=== PATIENT | male | born 1995 | race African-American/Black ===

== ENCOUNTER 2017-02-28 02:10 | Emergency (ER) | payer SELFPAY ==
[2017-02-28 02:30] VITALS: BP 126/68; PULSE 75; RESP 18; TEMP 98.5; O2SAT 100
[2017-02-28] MEDS ORDERED: SODIUM CHLOR 0.9% 1000 ML INJ 1,000 ML IV SCH (04:09)
[2017-02-28] MEDS ORDERED: SODIUM CHLORIDE 0.9% FLUSH 10 ML FLUSH IV FLUSH PRN (04:15)
[2017-02-28 04:19] VITALS: BP 114/66; PULSE 74; RESP 18; TEMP 98.3; O2SAT 99
[2017-02-28 04:35] LABS: AUTOMATED NEUTROPHIL # 3.5 TH/MM3 (1.8-7.7); BASOPHIL % 0.5 % (0.0-2.0); EOSINOPHIL % 7.6 % (0.0-4.0); HEMO FLAGS DIFF FINAL; LYMPH % 25.9 % (9.0-44.0); LYMPHOCYTE # 1.7 TH/MM3 (1.0-4.8); MEAN CELL VOLUME 88.5 FL (80.0-100.0); MEAN CORPUSCULAR HEMOGLOBIN 29.1 PG (27.0-34.0); MEAN CORPUSCULAR HGB CONC 32.9 % (32.0-36.0); MONO % 13.8 % (0.0-8.0); NEUT % 52.2 % (16.0-70.0); PLATELET COUNT 255 TH/MM3 (150-450); WHITE BLOOD COUNT 6.6 TH/MM3 (4.0-11.0)
[2017-02-28 04:36] LABS: EOSINOPHIL # 0.5 TH/MM3 (0-0.4)
[2017-02-28] MEDS ORDERED: AZITHROMYCIN PWD FOR SUSP 1 GM PACKET PO ONE (04:45)
[2017-02-28] MEDS ORDERED: cefTRIAXone INJ 1,000 MG in SODIUM CHLORIDE 0.9% INJ 100 ML IV ONE (04:45)
[2017-02-28 04:46] LABS: PROTHROMBIN TIME - PATIENT 10.7 SEC (9.8-11.6)
[2017-02-28 04:55] LABS: ALT (GPT) 20 U/L (12-78); ANION GAP 6 MEQ/L (5-15); AST (GOT) 14 U/L (15-37); BICARBONATE 31.5 MEQ/L (21.0-32.0); BLOOD UREA NITROGEN 11 MG/DL (7-18); CHLORIDE 103 MEQ/L (98-107); GLOMERULAR FILTRATION RATE 138 ML/MIN (>89); POTASSIUM 3.9 MEQ/L (3.5-5.1); SODIUM (NA) 140 MEQ/L (136-145)
[2017-02-28 04:57] LABS: ALKALINE PHOSPHATASE 87 U/L (45-117); TOTAL BILIRUBIN ADULT 0.2 MG/DL (0.2-1.0)
--- NOTE | 2017-02-28 05:00 | PD ---
HPI Chief Complaint: Abdominal Pain Time Seen by Provider: 04:10 Travel History International Travel<30 days: No Contact w/Intl Traveler<30days: No Traveled to known affect area: No History of Present Illness HPI Patient presents to emergency room for evaluation of penile discharge for the past 2-3 days. Patient reports history of gonorrhea in the past, patient concerned for possible STD this time. Patient with no abdominal pain, nausea vomiting or diarrhea at this time. Patient with no fevers or chills, no other complaints PFSH Past Medical History Medical History: Denies Significant Hx Diminished Hearing: No Immunizations Current: Yes Tetanus Vaccination: < 5 Years Influenza Vaccination: Yes Past Surgical History Surgical History: No Previous Surgery Social History Alcohol Use: Yes (OCCASIONAL) Tobacco Use: Yes (1/2 PACK PER WEEK) Substance Use: No Allergies-Medications (Allergen,Severity, Reaction): Coded Allergies: No Known Allergies (Verified Allergy, Unknown, 02/28/17) Reported Meds & Prescriptions Reported Meds & Active Scripts Active Macrobid (Nitrofurantoin Monoh/Nitrofur Macro) 100 Mg Cap 100 Mg PO BID 10 Days Review of Systems General / Constitutional: No: Fever Eyes: No: Visual changes HENT: No: Headaches Cardiovascular: No: Chest Pain or Discomfort Respiratory: No: Shortness of Breath Gastrointestinal: No: Abdominal Pain Genitourinary: Positive: Other (penile discharge), No: Dysuria Musculoskeletal: No: Pain Skin: No Rash Neurologic: No: Weakness Psychiatric: No: Depression Endocrine: No: Polydipsia Hematologic/Lymphatic: No: Easy Bruising Physical Exam Narrative GENERAL: NAD, NONTOXIC SKIN: Focused skin assessment warm/dry. HEAD: Atraumatic. Normocephalic. EYES: Pupils equal and round. No scleral icterus. No injection or drainage. ENT: No nasal bleeding or discharge. Mucous membranes pink and moist. NECK: Trachea midline. No JVD. CARDIOVASCULAR: Regular rate and rhythm. No murmur appreciated. RESPIRATORY: No accessory muscle use. Clear to auscultation. Breath sounds equal bilaterally. GASTROINTESTINAL: Abdomen soft, non-tender, nondistended. Hepatic and splenic margins not palpable. MUSCULOSKELETAL: No obvious deformities. No clubbing. No cyanosis. No edema. PSYCHIATRIC: Appropriate mood and affect; insight and judgment normal. Data Data Last Documented VS Vital Signs Date Time Temp Pulse Resp B/P (MAP) Pulse Ox O2 Delivery O2 Flow Rate FiO2 02/28/17 06:20 02/28/17 04:19 98.3 74 18 99 Room Air Orders Orders Complete Blood Count With Diff (02/28/17 04:09) Comprehensive Metabolic Panel (02/28/17 04:09) Lipase (02/28/17 04:09) Prothrombin Time / Inr (Pt) (02/28/17 04:09) Act Partial Throm Time (Ptt) (02/28/17 04:09) Urinalysis - C+S If Indicated (02/28/17 04:09) Iv Access Insert/Monitor (02/28/17 04:09) Sodium Chlor 0.9% 1000 Ml Inj (Ns 1000 M (02/28/17 04:09) Sodium Chloride 0.9% Flush (Ns Flush) (02/28/17 04:15) Drug Screen, Random Urine (02/28/17 04:10) Gc And Chlamydia Pcr (02/28/17 04:36) Azithromycin Powd Pack (Zithromax Powd P (02/28/17 04:45) Ceftriaxone Inj (Rocephin Inj) (02/28/17 04:45) Urine Culture (02/28/17 04:50) Labs Laboratory Tests Test 02/28/17 04:27 02/28/17 04:50 White Blood Count 6.6 TH/MM3 Red Blood Count 5.20 MIL/MM3 Hemoglobin 15.1 GM/DL Hematocrit 46.0 % Mean Corpuscular Volume 88.5 FL Mean Corpuscular Hemoglobin 29.1 PG Mean Corpuscular Hemoglobin Concent 32.9 % Red Cell Distribution Width 14.0 % Platelet Count 255 TH/MM3 Mean Platelet Volume 8.0 FL Neutrophils (%) (Auto) 52.2 % Lymphocytes (%) (Auto) 25.9 % Monocytes (%) (Auto) 13.8 % Eosinophils (%) (Auto) 7.6 % Basophils (%) (Auto) 0.5 % Neutrophils # (Auto) 3.5 TH/MM3 Lymphocytes # (Auto) 1.7 TH/MM3 Monocytes # (Auto) 0.9 TH/MM3 Eosinophils # (Auto) 0.5 TH/MM3 Basophils # (Auto) 0.0 TH/MM3 CBC Comment DIFF FINAL Differential Comment Prothrombin Time 10.7 SEC Prothromb Time International Ratio 1.0 RATIO Activated Partial Thromboplast Time 29.0 SEC Blood Urea Nitrogen 11 MG/DL Creatinine 0.84 MG/DL Random Glucose 78 MG/DL Total Protein 7.7 GM/DL Albumin 3.8 GM/DL Calcium Level 9.1 MG/DL Alkaline Phosphatase 87 U/L Aspartate Amino Transf (AST/SGOT) 14 U/L Alanine Aminotransferase (ALT/SGPT) 20 U/L Total Bilirubin 0.2 MG/DL Sodium Level 140 MEQ/L Potassium Level 3.9 MEQ/L Chloride Level 103 MEQ/L Carbon Dioxide Level 31.5 MEQ/L Anion Gap 6 MEQ/L Estimat Glomerular Filtration Rate 138 ML/MIN Lipase 105 U/L Urine Color YELLOW Urine Turbidity HAZY Urine pH 6.5 Urine Specific [place] 1.022 Urine Protein TRACE mg/dL Urine Glucose (UA) NEG mg/dL Urine Ketones NEG mg/dL Urine Occult Blood NEG Urine Nitrite NEG Urine Bilirubin NEG Urine Urobilinogen LESS THAN 2.0 MG/DL Urine Leukocyte Esterase LARGE Urine RBC 1 /hpf Urine WBC 62 /hpf Urine Amorphous Sediment RARE Urine Mucus FEW /lpf Microscopic Urinalysis Comment CULTURE INDICATED Urine Opiates Screen NEG Urine Barbiturates Screen NEG Urine Amphetamines Screen NEG Urine Benzodiazepines Screen NEG Urine Cocaine Screen NEG Urine Cannabinoids Screen POS MDM Medical Decision Making Medical Screen Exam Complete: Yes Emergency Medical Condition: Yes Interpretation(s) Vital Signs Date Time Temp Pulse Resp B/P (MAP) Pulse Ox O2 Delivery O2 Flow Rate FiO2 02/28/17 04:19 98.3 74 18 114/66 (82) 99 Room Air 02/28/17 02:30 98.5 75 18 126/68 (87) 100 Differential Diagnosis Differential includes urethritis, UTI Narrative Course Patient is a 21-year-old male who presents to emergency room with complaints of penile discharge for the past 2-3 days. Patient is concerned for possible STD as he has had unprotected sexual intercourse. Plan to treat for gonorrhea/ chlamydia. He will go to the health clinic for further evaluations of other std' s including but not limited to HIV CBC & BMP Diagram 02/28/17 04:27 Total Protein 7.7, Albumin 3.8, Calcium Level 9.1, Alkaline Phosphatase 87, Aspartate Amino Transf (AST/SGOT) 14 L, Alanine Aminotransferase (ALT/SGPT) 20, Total Bilirubin 0.2 Microbiology Date/Time Source Procedure Growth Status 02/28/17 04:50 Urine Clean Catch Urine Culture Pending Received Patient will follow-up with all cultures from today. He understands that all sexual partners will need to be treated if cultures are positive. he will return to ER as needed or if symptoms worsen or progress Diagnosis Primary Impression: Urethritis Additional Impression: UTI (urinary tract infection) Patient Instructions: General Instructions Additional Instructions: Please follow-up with all cultures from today If cultures are positive, all sexual partners will need to be treated Please follow up with your primary care doctor Return to ER as needed or if symptoms worsen or persist Scripts Nitrofurantoin Monohydrate Macrocrystals (Macrobid) 100 Mg Cap 100 MG PO BID for Infection for 10 Days, #20 CAP 0 Refills Prov: Yolanda Phillips DO 02/28/17 Disposition: 01 DISCHARGE HOME Condition: Stable Yolanda Phillips DO Feb 28, 2017 05:00
[2017-02-28 05:07] LABS: BLOOD, URINE NEG (NEG); GLUCOSE,URINE NEG (NEG); KETONE, URINE NEG (NEG); MUCUS URINE FEW /lpf (OCC); NITRITE,URINE NEG (NEG); PH, URINE 6.5 (5.0-8.5); URINE COLOR YELLOW (YELLW/STRAW)
[2017-02-28 05:16] LABS: COMMENT (UR) CULTURE INDICATED; CULTURE IF INDICATED CULTURE INDICATED
[2017-02-28] MEDS ORDERED: MACR100C2 PO (06:26)
[2017-02-28 09:26] LABS: CHLAMYDIA PCR NOT DETECTED (NOT DETECT); NEISSERIA PCR DETECTED (NOT DETECT)
== END 2017-02-28 06:26 | disposition home or self-care (01) ==
LOC: NED 02:10 → NEPE 06:26
DX: A54.01 Gonococcal cystitis and urethritis, unspecified (principal); N39.0 Urinary tract infection, site not specified
CPT/HCPCS: 80053; 80307; 81001; 83690; 85025; 85610; 85730; 87086; 87491; 87591; 96361; 96365; 99284; J0696; J7030